=== PATIENT | female | born 1990 | race Caucasian/White ===

== ENCOUNTER 2018-03-16 12:37 | Inpatient (IN) | payer OTHER ==
[~2018-03-16] VITALS: Ht 160 cm; Wt 62.9 kg
[2018-03-16] MEDS ORDERED: BETAMETHASONE 6 MG/ML, 5ML IM ONE (12:53)
[2018-03-16] MEDS: BETAMETHASONE 6 MG/ML, 5ML IM SCH (12:59)
[2018-03-16 15:00] LABS: MICROSCOPIC INDICATED
[2018-03-16] MEDS ORDERED: MAGNESIUM SULFATE PMX 2GM/50ML 0 ML ONE (15:13)
[2018-03-16] MEDS ORDERED: ONDANSETRON 2MG/ML, 2ML ONE (15:13)
[2018-03-16] MEDS ORDERED: MAGNESIUM SULF. PMX 20GM/500ML 500 ML IV ONE ×2 (15:14→22:15)
[2018-03-16] MEDS: LACTATED RINGERS 1,000 ML IV PRN (15:45)
[2018-03-16] MEDS: MAGNESIUM SULF. PMX 20GM/500ML 500 ML IV SCH ×2 (15:47→16:10)
[2018-03-16] MEDS ORDERED: MAGNESIUM SULFATE PMX 4GM/100M 100 ML IVPB ONE (16:00)
[2018-03-16] MEDS: AMPICILLIN 2 GM in SODIUM CHLORIDE 0.9% 100 ML IV SCH ×2 (16:26→22:15)
[2018-03-16] MEDS ORDERED: NEWBORN KIT ONE (19:45)
[2018-03-16] MEDS ORDERED: TERBUTALINE 1 MG/ML, 1ML ONE (20:13)
[2018-03-16 20:30] LABS: BASOPHILS # (AUTO) 0.07 x10^3/uL (0-0.1); BASOPHILS % (AUTO) 1 % (0-1); EOSINOPHILS % (AUTO) 0 % (1-7); LYMPHOCYTES # (AUTO) 1.57 x10^3/uL (1-3.4); LYMPHOCYTES % (AUTO) 11 % (22-44); MD NO; MEAN CORPUSCULAR HEMOGLOBIN 33.5 pg (27.0-34.8); MEAN CORPUSCULAR HGB CONC 33.8 g/dL (32.4-35.8); MEAN CORPUSCULAR VOLUME 99.1 fL (80-100); MEAN PLATELET VOLUME 6.9 fL (7.4-10.4); MONOCYTES # (AUTO) 0.09 x10^3/uL (0.2-0.8); MONOCYTES % (AUTO) 1 % (2-9); NEUTROPHILS % (AUTO) 88 % (42-75); PLATELET COUNT 260 x10^3/uL (130-400); RED BLOOD COUNT 3.56 x10^6/uL (3.82-5.3); RED CELL DISTRIBUTION WIDTH 13.1 % (9.6-15.2)
[2018-03-16] MEDS ORDERED: TERBUTALINE 1 MG/ML, 1ML IV ONE (20:30)
[2018-03-16] MEDS ORDERED: CALCIUM CARBONATE 500 MG TAB.CHEW PO PRN (22:00)
[2018-03-16] MEDS ORDERED: ONDANSETRON 4 MG TABLET ONE (23:33)
[2018-03-16] MEDS: ONDANSETRON ODT 4 MG PO PRN (23:35)
[2018-03-16 23:45] VITALS: BP 107/59
[2018-03-17] MEDS ORDERED: ACETAMINOPHEN 325 MG TABLET ONE (00:53)
[2018-03-17] MEDS: ACETAMINOPHEN 325 MG TABLET PO PRN (00:55)
[2018-03-17 04:00] VITALS: BP 95/53
[2018-03-17] MEDS: MAGNESIUM SULF. PMX 20GM/500ML 500 ML IV SCH ×4 (04:00→23:18)
[2018-03-17] MEDS: AMPICILLIN 2 GM in SODIUM CHLORIDE 0.9% 100 ML IV SCH ×4 (04:04→21:53)
[2018-03-17] MEDS ORDERED: MAGNESIUM SULF. PMX 20GM/500ML 500 ML IV ONE ×3 (06:10→23:12)
[2018-03-17] MEDS: LACTATED RINGERS 1,000 ML IV PRN ×2 (06:12→23:15)
[2018-03-17] MEDS ORDERED: ONDANSETRON 4 MG TABLET ONE (07:32)
[2018-03-17 07:40] VITALS: BP 102/56
[2018-03-17] MEDS ORDERED: ONDANSETRON ODT 4 MG ONE (07:41)
[2018-03-17] MEDS: ONDANSETRON ODT 4 MG PO PRN (07:42)
[2018-03-17] MEDS ORDERED: PRENATAL VIT/IRON/FA 1 EACH TABLET ONE (10:02)
[2018-03-17] MEDS: PRENATAL VIT/IRON/FA 1 EACH TABLET PO SCH (10:05)
[2018-03-17] MEDS: BETAMETHASONE 6 MG/ML, 5ML IM SCH (12:35)
[2018-03-17] MEDS ORDERED: MAGNESIUM SULF. PMX 20GM/500ML 500 ML IV SCH ×3 (15:41)
[2018-03-17] MEDS ORDERED: DOCUSATE 100 MG CAPSULE ONE (21:48)
[2018-03-17] MEDS: DOCUSATE 100 MG CAPSULE PO PRN (21:53)
[2018-03-18] MEDS: AMPICILLIN 2 GM in SODIUM CHLORIDE 0.9% 100 ML IV SCH ×3 (04:04→16:01)
[2018-03-18 06:08] VITALS: BP 101/54
[2018-03-18 08:00] VITALS: BP 102/55
[2018-03-18] MEDS ORDERED: DOCUSATE 100 MG CAPSULE ONE ×3 (08:08→21:38)
[2018-03-18] MEDS ORDERED: PRENATAL VIT/IRON/FA 1 EACH TABLET ONE (08:08)
[2018-03-18] MEDS: DOCUSATE 100 MG CAPSULE PO PRN ×2 (08:12→21:36)
[2018-03-18] MEDS: PRENATAL VIT/IRON/FA 1 EACH TABLET PO SCH (08:12)
[2018-03-18] MEDS ORDERED: MAGNESIUM SULF. PMX 20GM/500ML 500 ML IV ONE ×2 (09:00→18:59)
[2018-03-18] MEDS: MAGNESIUM SULF. PMX 20GM/500ML 500 ML IV SCH (09:04)
[2018-03-18] MEDS ORDERED: MAGNESIUM SULF. PMX 20GM/500ML 500 ML IV SCH (12:00)
[2018-03-18] MEDS ORDERED: GLYCERIN ADULT SUPP ONE (12:23)
[2018-03-18] MEDS: GLYCERIN ADULT SUPP PR PRN (16:02)
[2018-03-18] MEDS: LACTATED RINGERS 1,000 ML IV PRN (19:06)
[2018-03-18 20:00] VITALS: BP 104/62
[2018-03-18] MEDS ORDERED: ACETAMINOPHEN 325 MG TABLET ONE (21:34)
[2018-03-18] MEDS: ACETAMINOPHEN 325 MG TABLET PO PRN (21:36)
[2018-03-19] MEDS ORDERED: MAGNESIUM SULF. PMX 20GM/500ML 500 ML IV ONE ×2 (02:56→21:08)
[2018-03-19] MEDS: MAGNESIUM SULF. PMX 20GM/500ML 500 ML IV SCH ×3 (03:01→21:10)
[2018-03-19 03:10] VITALS: BP 95/55
[2018-03-19] MEDS: PRENATAL VIT/IRON/FA 1 EACH TABLET PO SCH (09:00)
[2018-03-19] MEDS: DOCUSATE 100 MG CAPSULE PO PRN ×2 (10:23→20:31)
[2018-03-19] MEDS ORDERED: ACETAMINOPHEN 325 MG TABLET ONE (15:19)
[2018-03-19] MEDS: ACETAMINOPHEN 325 MG TABLET PO PRN (15:21)
[2018-03-19] MEDS: LACTATED RINGERS 1,000 ML IV PRN (16:54)
[2018-03-19] MEDS ORDERED: GLYCERIN ADULT SUPP ONE (17:07)
[2018-03-19] MEDS: GLYCERIN ADULT SUPP PR PRN (17:10)
[2018-03-19] MEDS ORDERED: DOCUSATE 100 MG CAPSULE ONE (19:53)
[2018-03-19 21:38] VITALS: BP 108/56
[2018-03-19] MEDS ORDERED: MAGNESIUM SULF. PMX 20GM/500ML 500 ML IV SCH (23:15)
[2018-03-20 06:20] VITALS: BP 93/57
[2018-03-20 07:10] VITALS: BP 100/56
[2018-03-20] MEDS ORDERED: PRENATAL VIT/IRON/FA 1 EACH TABLET ONE (08:49)
[2018-03-20] MEDS ORDERED: DOCUSATE 100 MG CAPSULE ONE ×2 (08:49→20:40)
[2018-03-20] MEDS: DOCUSATE 100 MG CAPSULE PO PRN ×2 (08:52→20:43)
[2018-03-20] MEDS: PRENATAL VIT/IRON/FA 1 EACH TABLET PO SCH (08:52)
[2018-03-20 20:30] VITALS: BP 113/66
[2018-03-22 08:08] VITALS: BP 117/63
[2018-03-22] MEDS ORDERED: NIFE10CA2 PO (08:29)
[2018-03-22] MEDS ORDERED: DOCUSATE 100 MG CAPSULE ONE (08:36)
[2018-03-22] MEDS ORDERED: PRENATAL VIT/IRON/FA 1 EACH TABLET ONE (08:36)
[2018-03-22] MEDS: PRENATAL VIT/IRON/FA 1 EACH TABLET PO SCH (08:37)
[2018-03-22] MEDS: DOCUSATE 100 MG CAPSULE PO PRN (08:38)
== END 2018-03-22 10:39 | disposition home or self-care (01) | DRG 781 ==
LOC: LDOP 12:37 → LDIP 15:11
PROVIDERS: ADMIT Obstetrics & Gynecology; ATTEND Obstetrics & Gynecology
DX: O30.043 Twin pregnancy, dichorionic/diamniotic, third trimester (principal); O99.013 Anemia complicating pregnancy, third trimester; O60.03 Preterm labor without delivery, third trimester; O32.1XX0 Maternal care for breech presentation, not applicable or unspecified; Z3A.33 33 weeks gestation of pregnancy; D64.9 Anemia, unspecified
CPT/HCPCS: 36415; 76815; 81001; 83735; 85025; 86850; 86870; 86900; 86922; 86923; 87081; 87086; 96372; J0290; J0702; Q0162; J3105; J3475; J7120

== ENCOUNTER 2018-04-18 05:44 | Inpatient (IN) | payer OTHER ==
[~2018-04-18] VITALS: Ht 160 cm; Wt 63.2 kg
[~2018-04-18 05:44] MED LIST: NIFE10CA2 PO
[2018-04-18] MEDS ORDERED: LACTATED RINGERS 1,000 ML IV SCH ×2 (05:45→06:00)
[2018-04-18] MEDS ORDERED: OXYTOCIN 30U/ 0.9% NaCL 500ML 500 ML IV SCH (05:45)
[2018-04-18] MEDS ORDERED: SODIUM CITRATE/CITRIC ACID 30 ML UDC PO ONE (06:00)
[2018-04-18] MEDS ORDERED: METOCLOPRAMIDE 5 MG/ML, 2ML IV ONE (06:00)
[2018-04-18] MEDS ORDERED: LACTATED RINGERS 1,000 ML IVBOLUS ONE (06:00)
[2018-04-18 06:09] LABS: BASOPHILS # (AUTO) 0.06 x10^3/uL (0-0.1); BASOPHILS % (AUTO) 1 % (0-1); EOSINOPHILS # (AUTO) 0.09 x10^3/uL (0-0.4); EOSINOPHILS % (AUTO) 1 % (1-7); LYMPHOCYTES # (AUTO) 1.68 x10^3/uL (1-3.4); LYMPHOCYTES % (AUTO) 19 % (22-44); MD NO; MEAN CORPUSCULAR HEMOGLOBIN 33.5 pg (27.0-34.8); MEAN CORPUSCULAR HGB CONC 34.2 g/dL (32.4-35.8); MEAN PLATELET VOLUME 6.9 fL (7.4-10.4); MONOCYTES # (AUTO) 0.62 x10^3/uL (0.2-0.8); MONOCYTES % (AUTO) 7 % (2-9); NEUTROPHILS # (AUTO) 6.41 x10^3/uL (1.8-6.8); NEUTROPHILS % (AUTO) 72 % (42-75); PLATELET COUNT 247 x10^3/uL (130-400); RED BLOOD COUNT 3.72 x10^6/uL (3.82-5.3); RED CELL DISTRIBUTION WIDTH 13.6 % (9.6-15.2)
[2018-04-18] MEDS ORDERED: NEWBORN KIT ONE (06:10)
[2018-04-18] MEDS ORDERED: METOCLOPRAMIDE 5 MG/ML, 2ML ONE (06:11)
[2018-04-18] MEDS ORDERED: SODIUM CITRATE/CITRIC ACID 30 ML UDC ONE (06:11)
[2018-04-18 06:34] VITALS: BP 102/69
[2018-04-18] MEDS ORDERED: EPHEDRINE 50 MG/ML, 1ML ONE (07:27)
[2018-04-18] MEDS ORDERED: CEFAZOLIN 1,000 MG ONE (07:27)
[2018-04-18] MEDS ORDERED: PHENYLEPHRINE 10 MG/ML ONE (07:27)
[2018-04-18] MEDS ORDERED: KETOROLAC 30 MG/1 ML ONE (07:27)
[2018-04-18] MEDS ORDERED: FENTANYL PF 100 MCG/2ML ONE (07:27)
[2018-04-18] MEDS ORDERED: ONDANSETRON 2MG/ML, 2ML ONE (07:27)
[2018-04-18] MEDS ORDERED: DEXAMETHASONE 4 MG/ML, 1ML ONE (07:27)
[2018-04-18] MEDS ORDERED: OXYTOCIN 10 UNITS/ML, 1ML ONE (07:27)
[2018-04-18] MEDS ORDERED: BUPIVACAINE/PF 0.5% ONE (07:29)
[2018-04-18] MEDS ORDERED: OXYcodone 5 MG/5 ML ORAL.SOL UDC PO PRN (07:30)
[2018-04-18] MEDS ORDERED: HYDROcodone/APAP 7.5-325MG/15ML UDC PO PRN (07:30)
[2018-04-18] MEDS ORDERED: PROMETHAZINE 25 MG/ML, 1ML IV PRN (07:30)
[2018-04-18] MEDS ORDERED: FENTANYL PF 100 MCG/2ML IV PRN (07:30)
[2018-04-18] MEDS ORDERED: LABETALOL 5MG/ML, 20ML IV PRN (07:30)
[2018-04-18] MEDS ORDERED: MEPERIDINE/PF 25MG/0.5ML IVPush PRN (07:30)
[2018-04-18] MEDS ORDERED: MIDAZOLAM 1 MG/ML, 2ML IV PRN (07:30)
[2018-04-18] MEDS ORDERED: EPHEDRINE 50 MG/ML, 1ML IVPush PRN (07:30)
[2018-04-18] MEDS ORDERED: hydrALAzine 20 MG/ML, 1ML IV PRN (07:30)
[2018-04-18] MEDS ORDERED: ALBUTEROL SULFATE 2.5 MG/3 ML NPPB PRN (07:30)
[2018-04-18] MEDS ORDERED: HYDROmorphone 1 MG/ML, 1ML IV PRN (07:30)
[2018-04-18] MEDS ORDERED: ONDANSETRON 2MG/ML, 2ML IVPush PRN (07:30)
[2018-04-18] MEDS ORDERED: OXYTOCIN 30U/ 0.9% NaCL 500ML 500 ML ONE (07:32)
[2018-04-18] MEDS: LACTATED RINGERS 1,000 ML IV SCH ×3 (09:06→19:06)
[2018-04-18] MEDS ORDERED: ONDANSETRON 2MG/ML, 2ML IV PRN (09:30)
[2018-04-18] MEDS ORDERED: METHYLERGONOVINE 0.2 MG/ML IM PRN (09:30)
[2018-04-18] MEDS ORDERED: morphine SULFATE 10 MG/ML, 1ML IVPush PRN ×2 (09:30)
[2018-04-18] MEDS ORDERED: SIMETHICONE 80 MG CHEW TAB PO PRN (09:30)
[2018-04-18] MEDS ORDERED: OXYcodone/APAP 5/325MG TABLET PO PRN (09:30)
[2018-04-18] MEDS: PRENATAL VIT/IRON/FA 1 EACH TABLET PO SCH (09:30)
[2018-04-18] MEDS ORDERED: MISOPROSTOL 200 MCG TABLET PR PRN (09:30)
[2018-04-18] MEDS ORDERED: MISOPROSTOL 200 MCG TABLET ONE (10:45)
[2018-04-18] MEDS ORDERED: METHYLERGONOVINE 0.2 MG/ML IM ONE (10:58)
[2018-04-18 11:35] VITALS: BP 126/79
[2018-04-18] MEDS: OXYcodone IR 5MG TABLET PO PRN ×2 (14:37→19:53)
[2018-04-18] MEDS: KETOROLAC 30 MG/1 ML IV SCH ×2 (14:37→20:46)
[2018-04-18 15:50] VITALS: BP 115/72
[2018-04-18 16:49] LABS: BASOPHILS # (AUTO) 0.01 x10^3/uL (0-0.1); BASOPHILS % (AUTO) 0 % (0-1); EOSINOPHILS % (AUTO) 0 % (1-7); LYMPHOCYTES # (AUTO) 1.16 x10^3/uL (1-3.4); LYMPHOCYTES % (AUTO) 8 % (22-44); MD NO; MEAN CORPUSCULAR HEMOGLOBIN 33.2 pg (27.0-34.8); MEAN CORPUSCULAR HGB CONC 34.4 g/dL (32.4-35.8); MEAN CORPUSCULAR VOLUME 96.7 fL (80-100); MONOCYTES # (AUTO) 0.59 x10^3/uL (0.2-0.8); MONOCYTES % (AUTO) 4 % (2-9); NEUTROPHILS # (AUTO) 12.99 x10^3/uL (1.8-6.8); NEUTROPHILS % (AUTO) 88 % (42-75); PLATELET COUNT 213 x10^3/uL (130-400); RED BLOOD COUNT 3.49 x10^6/uL (3.82-5.3); RED CELL DISTRIBUTION WIDTH 13.4 % (9.6-15.2)
[2018-04-18] MEDS: OXYTOCIN 30U/ 0.9% NaCL 500ML 500 ML IV SCH (19:06)
[2018-04-18] MEDS: DOCUSATE 100 MG CAPSULE PO PRN (19:53)
[2018-04-18 20:50] VITALS: BP 94/59
[2018-04-19] MEDS: OXYcodone IR 5MG TABLET PO PRN ×6 (00:02→22:46)
[2018-04-19 00:11] VITALS: BP 96/59
[2018-04-19] MEDS: LACTATED RINGERS 1,000 ML IV SCH ×5 (01:06→20:05)
[2018-04-19] MEDS: KETOROLAC 30 MG/1 ML IV SCH ×4 (03:13→20:37)
[2018-04-19 04:38] VITALS: BP 94/57
[2018-04-19] MEDS: OXYTOCIN 30U/ 0.9% NaCL 500ML 500 ML IV SCH ×2 (05:06→20:05)
[2018-04-19] MEDS ORDERED: RHOGAM FROM BLOOD BANK 1 NOTE EA IM/IV ONE (05:50)
[2018-04-19 07:53] VITALS: BP 96/59
[2018-04-19] MEDS: DOCUSATE 100 MG CAPSULE PO PRN ×2 (08:49→20:37)
[2018-04-19] MEDS: PRENATAL VIT/IRON/FA 1 EACH TABLET PO SCH (08:49)
[2018-04-19 19:15] VITALS: BP 117/69
[2018-04-20] MEDS: OXYTOCIN 30U/ 0.9% NaCL 500ML 500 ML IV SCH ×2 (01:06→11:06)
[2018-04-20] MEDS: LACTATED RINGERS 1,000 ML IV SCH ×4 (01:06→09:39)
[2018-04-20] MEDS: OXYcodone IR 5MG TABLET PO PRN ×5 (02:57→21:23)
[2018-04-20] MEDS: KETOROLAC 30 MG/1 ML IV SCH ×2 (02:57→09:46)
[2018-04-20] MEDS: DOCUSATE 100 MG CAPSULE PO PRN ×2 (07:46→19:52)
[2018-04-20] MEDS: PRENATAL VIT/IRON/FA 1 EACH TABLET PO SCH (07:46)
[2018-04-20 07:49] VITALS: BP 118/78
[2018-04-20] MEDS ORDERED: KETOROLAC 30 MG/1 ML ONE (09:42)
[2018-04-20] MEDS ORDERED: ACETAMINOPHEN 325 MG TABLET ONE (15:00)
[2018-04-20] MEDS ORDERED: ACETAMINOPHEN 325 MG TABLET PO PRN ×2 (15:00)
[2018-04-20] MEDS: IBUPROFEN 600 MG TABLET PO PRN ×2 (15:53→23:12)
[2018-04-20 19:00] VITALS: BP 116/74
[2018-04-21] MEDS: OXYcodone IR 5MG TABLET PO PRN ×2 (02:05→08:11)
[2018-04-21] MEDS: IBUPROFEN 600 MG TABLET PO PRN ×2 (05:05→12:11)
[2018-04-21] MEDS: DOCUSATE 100 MG CAPSULE PO PRN (08:10)
[2018-04-21] MEDS: PRENATAL VIT/IRON/FA 1 EACH TABLET PO SCH (08:10)
[2018-04-21 08:11] VITALS: BP 116/76
[2018-04-21] MEDS ORDERED: HYDROCORTISONE CRM 1%, 30GM TP PRN (09:30)
[2018-04-21] MEDS ORDERED: OXYC-302 PO (10:00)
[2018-04-21] MEDS ORDERED: DOCU-131 PO (10:00)
[2018-04-21] MEDS ORDERED: IBUP-1222 PO (10:00)
== END 2018-04-21 12:44 | disposition home or self-care (01) | DRG 765 ==
LOC: LDIP 05:44 → 2NW 11:35
PROVIDERS: ADMIT Obstetrics & Gynecology; ATTEND Obstetrics & Gynecology
PROC: 10D00Z1 Extraction of Products of Conception, Low, Open Approach (ICD-10-PCS; principal; 2018-04-18)
DX: O99.354 Diseases of the nervous system complicating childbirth (principal); O30.043 Twin pregnancy, dichorionic/diamniotic, third trimester; Z37.2 Twins, both liveborn; O32.1XX2 Maternal care for breech presentation, fetus 2; Z3A.37 37 weeks gestation of pregnancy; G43.909 Migraine, unspecified, not intractable, without status migrainosus; O69.2XX0 Labor and delivery complicated by other cord entanglement, with compression, not applicable or unspecified; O62.2 Other uterine inertia
CPT/HCPCS: 36415; J2790; 85025; 85461; 86850; 86870; 86900; 86922; 86923; 88307; J0690; J1100; J1885; J2405; J3010; J3490; J2210; J2270; J2370; J2590; J2765; J7120